=== PATIENT | male | born 1960 | race Caucasian/White ===

== ENCOUNTER 2018-02-18 05:25 | Inpatient (IN) | payer OTHER ==
[2018-02-18] MEDS: CEFAZOLIN 2 GM/50 ML (PMX) 50 ML IVPB (06:47)
[2018-02-18] MEDS: LACTATED RINGER'S 1,000 ML IV* (06:47)
[2018-02-18] MEDS ORDERED: PROPOFOL 20 ML (06:52)
[2018-02-18] MEDS ORDERED: ROCURONIUM 50 MG INJ (06:53)
[2018-02-18] MEDS ORDERED: LIDOCAINE 2% (SDV) 5 ML INJ (07:00)
[2018-02-18] MEDS ORDERED: INSULIN REGULAR, HUMAN 100 UNIT/1 ML 3ML VIAL SC (07:00)
[2018-02-18] MEDS ORDERED: HYDROmorphONE 2 MG/ML SYG (07:25)
[2018-02-18] MEDS ORDERED: ONDANSETRON 4 MG INJ (07:27)
[2018-02-18] MEDS ORDERED: DEXAMETHASONE 4 MG/ML 1 ML INJ (07:27)
[2018-02-18] MEDS ORDERED: LABETALOL HCL 20MG INJ (07:29)
[2018-02-18] MEDS ORDERED: POVIDONE IODINE 10% 28.4 GM OINT (07:49)
[2018-02-18] MEDS: POLYMYXIN/BACITRACIN 1L IRRIG IRR (08:14)
[2018-02-18] MEDS: GELATIN SIZE 100 SPONGE (08:14)
[2018-02-18] MEDS: BUPIVACAINE 0.25% (MPF) 30 ML INJ (08:14)
[2018-02-18] MEDS: THROMBIN 5000 UNIT VIAL (08:15)
[2018-02-18] MEDS ORDERED: THROMBIN 5000 UNIT VIAL (08:15)
[2018-02-18] MEDS ORDERED: SUGAMMADEX SODIUM 200 MG/2 ML VIAL IV (12:27)
[2018-02-18] MEDS: DEXTROSE 5%-0.45% NACL 1,000 ML IV ×3 (12:49→22:17)
[2018-02-18] MEDS ORDERED: HYDROmorphONE 1 MG/5 ML IV SYRINGE IV (13:00)
[2018-02-18] MEDS ORDERED: MIDAZOLAM 1 MG/ML 2 ML INJ IV (13:00)
[2018-02-18] MEDS ORDERED: FENTAnyl 50 MCG/ML VIAL IV ×2 (13:00)
[2018-02-18] MEDS ORDERED: EPHEDrine SULFATE 50 MG/5 ML SYG IV (13:00)
[2018-02-18] MEDS ORDERED: NALOXONE (0.4 MG/ML) INJ IV (13:00)
[2018-02-18] MEDS ORDERED: AL HYDROX/MG HYDROX/SIMETH 30 ML CUP PO (13:00)
[2018-02-18] MEDS ORDERED: DIAZEPAM 5 MG/ML SYG IM (13:00)
[2018-02-18] MEDS ORDERED: ZOLPIDEM 5 MG TAB PO (13:00)
[2018-02-18] MEDS ORDERED: ALBUTEROL 0.083% (NEB) 2.5 MG/3 ML AMP HHN (13:00)
[2018-02-18] MEDS ORDERED: TRIMETHOBENZAMIDE 100 MG/ML VIAL IM (13:00)
[2018-02-18] MEDS ORDERED: NACL 0.9% 3 ML SYG IV (13:00)
[2018-02-18] MEDS ORDERED: hydrALAzine 20 MG INJ IV (13:00)
[2018-02-18] MEDS ORDERED: MEPERIDINE 25 MG INJ IV (13:00)
[2018-02-18] MEDS ORDERED: ONDANSETRON 4 MG INJ IV ×2 (13:00)
[2018-02-18] MEDS ORDERED: ACETAMINOPHEN 325 MG TAB PO (13:00)
[2018-02-18] MEDS ORDERED: DIPHENHYDRAMINE 50 MG CAP PO (13:00)
[2018-02-18] MEDS ORDERED: LABETALOL HCL 20MG INJ IV (13:00)
[2018-02-18] MEDS ORDERED: METOCLOPRAMIDE 10 MG INJ IV (13:00)
[2018-02-18] MEDS ORDERED: OXYCODONE/ACETAMINOPHEN (5/325) TAB PO ×2 (13:00)
[2018-02-18] MEDS ORDERED: PROCHLORPERAZINE 10 MG TAB PO (13:00)
[2018-02-18] MEDS: FENTAnyl 50 MCG/ML VIAL IV ×2 (13:01→13:12)
[2018-02-18] MEDS: HYDROmorphONE 1 MG/5 ML IV SYRINGE IV ×3 (13:25→13:59)
[2018-02-18] MEDS: HYDROmorphONE 0.2 MG/ML PCA IV ×2 (13:38→20:43)
[2018-02-18] MEDS: DIPHENHYDRAMINE 50 MG INJ IV (14:01)
[2018-02-18] MEDS: DIAZEPAM 5 MG TAB PO ×2 (17:31→21:43)
[2018-02-18] MEDS: CEFAZOLIN 1 GM/50 ML (PMX) 50 ML IVPB (17:32)
[2018-02-18] MEDS: CEPASTAT LOZENGE MT ×2 (17:33→19:38)
[2018-02-18] MEDS: RANITIDINE 150 MG TAB PO (20:41)
[2018-02-19] MEDS: CEFAZOLIN 1 GM/50 ML (PMX) 50 ML IVPB ×3 (00:14→13:29)
[2018-02-19] MEDS: HYDROmorphONE 0.2 MG/ML PCA IV (02:40)
[2018-02-19] MEDS: DEXTROSE 5%-0.45% NACL 1,000 ML IV ×2 (05:09→20:20)
[2018-02-19 05:13] LABS: HEMATOCRIT 41.1 % (42.0-52.0); HEMOGLOBIN 13.5 g/dl (14.0-18.0)
[2018-02-19 05:23] LABS: ANION GAP 10 (5-13); BLOOD UREA NITROGEN 10 mg/dl (7-20); CALCIUM 8.3 mg/dl (8.4-10.2); CARBON DIOXIDE 27 mmol/L (21-31); CHLORIDE 104 mmol/L (97-110); CREATININE 0.71 mg/dl (0.61-1.24); GLUCOSE 128 mg/dl (70-220); SODIUM 141 mmol/L (135-144)
[2018-02-19] MEDS ORDERED: BETHANECHOL 25 MG TAB PO (08:00)
[2018-02-19] MEDS: FERROUS SULFATE (EC) 325 MG TAB PO ×3 (09:43→20:29)
[2018-02-19] MEDS: ASCORBIC ACID 500 MG TAB PO ×2 (09:43→20:29)
[2018-02-19] MEDS: RANITIDINE 150 MG TAB PO ×2 (09:43→21:00)
[2018-02-19] MEDS: DOCUSATE SODIUM 100 MG CAP PO ×2 (09:43→20:29)
[2018-02-19] MEDS: BETHANECHOL 25 MG TAB PO (10:27)
[2018-02-19] MEDS: HYDROCODONE/APAP (5/325) TAB PO (10:28)
[2018-02-19] MEDS: CEPASTAT LOZENGE MT (12:05)
[2018-02-19 13:59] LABS: ADD UMIC YES; UR ASCORBIC ACID NEGATIVE (NEGATIVE); UR BILIRUBIN (Dip) NEGATIVE (NEGATIVE); UR BLOOD (Dip) 3+ mg/dL (NEGATIVE); UR CLARITY SLIGHTLY CLOUDY (CLEAR); UR COLOR YELLOW (YELLOW); UR GLUCOSE (Dip) NEGATIVE (NEGATIVE); UR KETONES (Dip) NEGATIVE (NEGATIVE); UR LEUKOCYTE ESTERASE (Dip) NEGATIVE Leu/ul (NEGATIVE); UR MUCUS FEW /HPF (NONE SEEN); UR NITRITE (Dip) NEGATIVE (NEGATIVE); UR RBC > 182 /HPF (0-5); UR SPECIFIC GRAVITY (Dip) 1.029 (1.003-1.030); UR TOTAL PROTEIN (Dip) 2+ mg/dl (NEGATIVE); UR UROBILINOGEN (Dip) NEGATIVE (NEGATIVE); UR WBC 0 /HPF (0-5)
[2018-02-19] MEDS: AL HYDROX/MG HYDROX/SIMETH 30 ML CUP PO (20:28)
[2018-02-19] MEDS: METOCLOPRAMIDE 10 MG INJ IV (20:28)
[2018-02-19] MEDS: PANTOPRAZOLE 40 MG INJ IV (20:28)
[2018-02-20] MEDS: METOCLOPRAMIDE 10 MG INJ IV ×3 (00:15→12:25)
[2018-02-20] MEDS: RANITIDINE 150 MG TAB PO ×2 (00:16→08:54)
[2018-02-20] MEDS: DEXTROSE 5%-0.45% NACL 1,000 ML IV (04:49)
[2018-02-20] MEDS: PANTOPRAZOLE (EC) 40 MG TAB PO (05:38)
[2018-02-20] MEDS: FERROUS SULFATE (EC) 325 MG TAB PO ×2 (08:54→12:25)
[2018-02-20] MEDS: ASCORBIC ACID 500 MG TAB PO (08:54)
[2018-02-20] MEDS: DOCUSATE SODIUM 100 MG CAP PO (08:54)
[2018-02-20] MEDS: HYDROCODONE/APAP (5/325) TAB PO (08:59)
== END 2018-02-20 13:30 | disposition home or self-care (01) | DRG 473 ==
LOC: REC 05:25 → MS1 14:46
PROC: 0RG2070 Fusion of 2 or more Cervical Vertebral Joints with Autologous Tissue Substitute, Anterior Approach, Anterior Column, Open Approach (ICD-10-PCS; principal; 2018-02-18 07:00)
PROC: 0RB30ZZ Excision of Cervical Vertebral Disc, Open Approach (ICD-10-PCS; 2018-02-18 07:00)
PROC: 0QB30ZZ Excision of Left Pelvic Bone, Open Approach (ICD-10-PCS; 2018-02-18 07:00)
PROC: 4A11X4G Monitoring of Peripheral Nervous Electrical Activity, Intraoperative, External Approach (ICD-10-PCS; 2018-02-18 07:00)
DX: M50.221 Other cervical disc displacement at C4-C5 level (principal); R03.0 Elevated blood-pressure reading, without diagnosis of hypertension
CPT/HCPCS: 71045; 72020; 72040; 80048; 81001; 85014; 85018; 86850; 86900; 86901; 86920; 87086; 88304; 93005; 97116; 97161; 97530